=== PATIENT | female | born 1995 | race Caucasian/White ===

== ENCOUNTER 2018-08-05 10:03 | Emergency (ER) | payer MEDICAID ==
[~2018-08-05] VITALS: Ht 170.2 cm; Wt 70.3 kg
--- NOTE | 2018-08-05 10:12 | NUR ---
PT AMBULATES TO BED 7
[2018-08-05 10:16] VITALS: BP 144/82
--- NOTE | 2018-08-05 10:19 | NUR ---
PT C/O LAC TO R KNEE S/P FALLING ONTO SNOW AND ROCKS, BLEEDING CONTROLLED LAC IS 1.5 CM ON ANTERIOR ASPECT OF KNEECAP. 6/10 PAIN. HX---NONE
--- NOTE | 2018-08-05 10:38 | NUR ---
XRAY AT BEDSIDE
--- NOTE | 2018-08-05 10:42 | NUR ---
Patient being evaluated by physician at bedside.
[2018-08-05] MEDS ORDERED: NEOMYCIN/POLYMYXIN/BACITRACIN 0.9 GM/1 PKT TP ONE (11:25)
[2018-08-05 11:36] VITALS: BP 120/78
--- NOTE | 2018-08-05 11:36 | NUR ---
Patient discharged with v/s stable. Written and verbal after care instructions given and explained. Patient verbalized understanding. Ambulatory with steady gait. All questions addressed prior to discharge. Advised to follow up with PMD.
== END 2018-08-05 11:36 | disposition home or self-care (01) ==
LOC: MED 10:03
DX: S81.011A Laceration without foreign body, right knee, initial encounter (principal); W00.0XXA Fall on same level due to ice and snow, initial encounter; Y93.89 Activity, other specified; Y92.89 Other specified places as the place of occurrence of the external cause; Y99.8 Other external cause status
CPT/HCPCS: 73562; 90471; 90715; 99283

== ENCOUNTER 2023-06-12 16:40 | Emergency (ER) | payer MEDICAID, OTHER ==
[~2023-06-12] VITALS: Ht 170.2 cm; Wt 93.0 kg
[2023-06-12 17:35] VITALS: BP 171/88; PULSE 117; RESP 18; TEMP 97; O2SAT 97
[2023-06-12 18:27] LABS: APPEARANCE,URINE CLEAR (CLEAR); BILIRUBIN,URINE 2+ (NEGATIVE); BLOOD, URINE TRACE-I (NEGATIVE); COLOR,URINE YELLOW (YELLOW); LEUKOCYTE ESTERASE ,URINE NEGATIVE (NEGATIVE); NITRITE, URINE NEGATIVE (NEGATIVE); PROTEIN,URINE 1+ (NEGATIVE); UGLUCOSE NEGATIVE (NEGATIVE)
[2023-06-12 18:29] LABS: BASOPHILS % (AUTO) 0.3 % (0.0-2.0); EOSINOPHILS % (AUTO) 0.2 % (0.0-4.0); HEMATOCRIT 38.1 % (36-48); LYMPHOCYTES # (AUTO) 1.1 K/uL (2.5-16.5); LYMPHOCYTES % (AUTO) 9.9 % (20.5-51.1); MEAN CORPUSCULAR HEMOGLOBIN 28 pg (27-31); MEAN CORPUSCULAR HGB CONC 34 g/dL (33-37); MEAN CORPUSCULAR VOLUME 81.5 fL (80-94); MONOCYTES # (AUTO) 0.5 K/uL (0.8-1.0); MONOCYTES % (AUTO) 4.5 % (1.7-9.3); NEUTROPHILS # (AUTO) 9.4 K/uL (1.8-7.7); NEUTROPHILS % (AUTO) 85.1 % (42.2-75.2); PLATELET COUNT (AUTO) 313 K/uL (140-450); RED BLOOD CELL COUNT(AUTO) 4.68 MIL/uL (4.20-5.40); RED CELL DISTRIBUTION WIDTH 12.8 % (11.6-13.7); WHITE BLOOD COUNT (AUTO) 11.1 K/uL (4.8-10.8)
[2023-06-12 18:35] LABS: ICTOTEST NEGATIVE (NEGATIVE)
[2023-06-12 18:39] LABS: BACTERIA,URINE 10-30 (MOD) /HPF (None Seen); SQUAMOUS EPITHELIAL CELL,UR 4-10 (MOD) /LPF (0-3 (FEW)); WBC,URINE 0-5 /HPF (0-5)
[2023-06-12] MEDS ORDERED: LACTATED RINGERS 1,000 ML IV STA (18:43)
[2023-06-12 18:46] LABS: ALBUMIN 3.2 g/dL (3.4-5.0); ANION GAP 13.2 (8-16); CALCIUM 8.9 mg/dL (8.5-10.1); CARBON DIOXIDE 26.1 mmol/L (21-32); CREATININE 0.8 mg/dL (0.6-1.3); POTASSIUM 4.3 mmol/L (3.5-5.1); TOTAL BILIRUBIN 0.4 mg/dL (0.0-1.0); TOTAL PROTEIN, SERUM 7.4 g/dL (6.4-8.2)
[2023-06-12] MEDS ORDERED: PYRIDOXINE 50 MG TAB PO SCH (20:00)
[2023-06-12] MEDS ORDERED: DOXY25TA42 PO (20:08)
[2023-06-12] MEDS ORDERED: PYRI-218 PO (20:08)
[2023-06-12] MEDS ORDERED: ONDA-188 SL (20:08)
[2023-06-12] MEDS ORDERED: CEPH-588 PO (20:10)
[2023-06-12 21:51] VITALS: BP 145/76; PULSE 102; RESP 18; TEMP 97; O2SAT 97
== END 2023-06-12 21:51 | disposition home or self-care (01) ==
LOC: MED 16:40
DX: O21.8 Other vomiting complicating pregnancy (principal); O99.281 Endocrine, nutritional and metabolic diseases complicating pregnancy, first trimester; E86.0 Dehydration; O23.91 Unspecified genitourinary tract infection in pregnancy, first trimester; R82.71 Bacteriuria; Z3A.13 13 weeks gestation of pregnancy; Z79.899 Other long term (current) drug therapy; Z79.2 Long term (current) use of antibiotics
CPT/HCPCS: 36415; 80053; 81001; 81025; 83690; 85025; 87086; 96360; 99283; J7120